=== PATIENT | male | born 1950 | race Caucasian/White ===

== ENCOUNTER 2022-07-12 18:40 | Emergency (ER) | payer MEDICAID ==
[~2022-07-12] VITALS: Ht 172.7 cm; Wt 49.0 kg
[2022-07-12] MEDS ORDERED: PANTOPRAZOLE 40 MG VIAL IV ONE (19:30)
[2022-07-12] MEDS ORDERED: IV NS 0.9% 1,000 ML BAG IV ONE (19:30)
--- NOTE | 2022-07-12 19:30 | NUR ---
PT BIBFAMILY FOR COMPLAINT OF UPPER ABD PAIN X1 WEEK. -N/V/D -FEVER PAIN 05/04. PT AWAKE AND ALERT X4 BREATHING EVEN AND UNLABORED. CHNAGED INTO GOWN AND PLACED ON MONITOR AND V/S WNL.
[2022-07-12] MEDS ORDERED: PANTOPRAZOLE 40 MG VIAL ONE (19:31)
--- NOTE | 2022-07-12 19:38 | NUR ---
19G IV ESTABLISHED AT [facility]. BLOOD DRAWN AND SENT TO LAB.
[2022-07-12 19:43] LABS: BILIRUBIN,URINE NEGATIVE (NEGATIVE); COLOR,URINE YELLOW (YELLOW); LEUKOCYTE ESTERASE ,URINE NEGATIVE (NEGATIVE); NITRITE, URINE NEGATIVE (NEGATIVE); PROTEIN,URINE 30 mg/dl (NEGATIVE); UGLUCOSE NEGATIVE (NEGATIVE)
[2022-07-12] MEDS ORDERED: IOHEXOL-350 100 ML VIAL IV ONE (19:44)
[2022-07-12] MEDS ORDERED: IV NS 0.9% 250 ML IV ONE (19:44)
[2022-07-12 19:45] LABS: BACTERIA,URINE Rare /HPF (None Seen); RBC,URINE 0-2 /HPF (0-2); SQUAMOUS EPITHELIAL CELL,UR Few /HPF (None Seen)
[2022-07-12 19:49] LABS: CALCIUM, SERUM 9.3 mg/dL (8.5-10.1); CREATININE 1.1 mg/dL (0.6-1.3); POTASSIUM 3.9 mmol/L (3.5-5.1)
[2022-07-12 19:52] LABS: ALBUMIN 3.8 g/dL (3.4-5.0); BILIRUBIN,DIRECT 0.3 mg/dL (0.0-0.2); TOTAL PROTEIN, SERUM 8.4 g/dL (6.4-8.2)
[2022-07-12 19:57] LABS: BASOPHILS % (AUTO) 0.6 % (0.0-2.0); EOSINOPHILS % (AUTO) 2.1 % (0.0-6.0); HEMATOCRIT 44 % (39-51); HEMOGLOBIN 14.7 g/dL (13.5-17.5); LYMPHOCYTES # (AUTO) 1.5 K/uL (0.8-4.8); LYMPHOCYTES % (AUTO) 29.3 % (20.0-44.0); MEAN CORPUSCULAR HGB CONC 34 g/dl (31.0-36.0); MEAN CORPUSCULAR VOLUME 91 fL (80-96); MONOCYTES # (AUTO) 0.7 K/uL (0.1-1.30); MONOCYTES % (AUTO) 13.2 % (2.0-12.0); NEUTROPHILS # (AUTO) 2.8 K/uL (1.8-8.9); NEUTROPHILS % (AUTO) 54.8 % (43.0-81.0); PLATELET COUNT (AUTO) 137 K/uL (150-450); RED BLOOD CELL COUNT(AUTO) 4.76 MIL/uL (4.5-6.0); WHITE BLOOD COUNT (AUTO) 5.1 K/uL (4.3-11.0)
--- NOTE | 2022-07-12 20:10 | NUR ---
PT TAKEN TO AND RETURNED FROM [facility]
--- NOTE | 2022-07-12 21:03 | NUR ---
Patient discharged to home in stable condition. Written and verbal after care instructions given. Patient verbalizes understanding of instruction.IV removed. Catheter intact and site benign. Pressure and 4x4 applied to site. No bleeding noted.
[2022-07-12 21:08] VITALS: BP 124/94
== END 2022-07-12 21:12 | disposition home or self-care (01) ==
LOC: ER 18:40
DX: I71.43 Infrarenal abdominal aortic aneurysm, without rupture (principal); R10.13 Epigastric pain; J45.909 Unspecified asthma, uncomplicated
CPT/HCPCS: 99285; 74177; 96374; 71045; 96361; 93005; 85025; 80048; 83690; 80076; 81001; 36415; 82962; J7030; J7050; C9113; Q9967; 87086-TC